=== PATIENT | female | born 1960 | race Caucasian/White ===

== ENCOUNTER 2017-04-23 08:38 | Outpatient (CLI) | payer MEDICARE | END 2017-04-23 23:59 | disposition home or self-care (01) | LOC: VAS 08:38 | PROVIDERS: ATTEND Family Medicine | DX: M71.22 Synovial cyst of popliteal space [Baker], left knee (principal); R60.0 Localized edema | CPT/HCPCS: 93971 ==

== ENCOUNTER 2017-09-27 11:04 | Emergency (ER) | payer MEDICARE ==
[~2017-09-27] VITALS: Ht 167.6 cm; Wt 58.6 kg
[~2017-09-27 11:04] MED LIST: ONDA4TAB12 PO; PANT-47 PO
[2017-09-27 12:11] LABS: INR 2.8 INR; PROTHROMBIN TIME 27.5 SECONDS (9.0-12.0)
[2017-09-27] MEDS ORDERED: ONDA4TAB9 PO (12:17)
[2017-09-27] MEDS ORDERED: ondansetron/PF 4mg/2ml inj IV STA (12:20)
[2017-09-27] MEDS ORDERED: ondansetron 4mg rapidly disintigrating tab PO STA (12:38)
[2017-09-27 12:50] VITALS: BP 143/93
== END 2017-09-27 12:53 | disposition home or self-care (01) ==
LOC: ER 11:04
DX: R11.2 Nausea with vomiting, unspecified (principal); R61 Generalized hyperhidrosis; R10.9 Unspecified abdominal pain; J45.909 Unspecified asthma, uncomplicated; M19.90 Unspecified osteoarthritis, unspecified site; Z90.710 Acquired absence of both cervix and uterus; Z98.890 Other specified postprocedural states; Z88.0 Allergy status to penicillin; Z88.2 Allergy status to sulfonamides; Z79.899 Other long term (current) drug therapy
CPT/HCPCS: 36415; 85610; 99284; J2405

== ENCOUNTER 2017-12-17 10:37 | Outpatient (CLI) | payer MEDICARE ==
[~2017-12-17 10:37] MED LIST changes: +ALBU6.7H INH
== END 2017-12-17 23:59 | disposition home or self-care (01) ==
LOC: VAS 10:37
PROVIDERS: ATTEND Family Medicine
DX: S80.11XA Contusion of right lower leg, initial encounter (principal); M71.21 Synovial cyst of popliteal space [Baker], right knee; R60.0 Localized edema; J45.909 Unspecified asthma, uncomplicated; M06.9 Rheumatoid arthritis, unspecified; Z87.891 Personal history of nicotine dependence; X58.XXXA Exposure to other specified factors, initial encounter; Y93.89 Activity, other specified; Y92.89 Other specified places as the place of occurrence of the external cause; Y99.8 Other external cause status
CPT/HCPCS: 93971

== ENCOUNTER 2018-11-22 15:19 | Emergency (ER) | payer MEDICARE ==
[~2018-11-22] VITALS: Ht 167.6 cm; Wt 68.2 kg
[~2018-11-22 15:19] MED LIST changes: -ALBU6.7H INH; +ARA20T PO; +ATOR20TA66 PO; +DULO60CA65 PO; +ERGO500056 PO; +FLUT200B3 PO; +HYDR200T84 PO; +LOSA1TAB36 PO; +METO25TA6 PO; -ONDA4TAB12 PO; -PANT-47 PO; +PANT40TA4 PO; +POTA8TAB8 PO; +WARF3TAB56 PO
[2018-11-22] MEDS ORDERED: normal saline 1000ML IV soln IV ONE (15:25)
[2018-11-22] MEDS ORDERED: proCHLORperazine 10 MG/2 ml inj IV ONE (15:25)
[2018-11-22] MEDS ORDERED: normal saline 1000ML IV soln IVB ONE ×2 (15:30→18:10)
[2018-11-22 15:53] LABS: EOSINOPHILS # (AUTO) 0.3 X10'3 (0-0.9); LYMPHOCYTES # (AUTO) 0.9 X10'3 (1.1-4.8); LYMPHOCYTES % (AUTO) 16.5 % (21-51); MEAN CORPUSCULAR HEMOGLOBIN 30.4 PG (27.0-31.0); MONOCYTES # (AUTO) 0.7 X10'3 (0-0.9); NEUTROPHILS # (AUTO) 3.5 X10'3 (1.8-7.7); WHITE BLOOD COUNT 5.6 X10'3 (4.5-11.0)
[2018-11-22 15:55] LABS: BASOPHILS # (AUTO) 0.1 X10'3 (0-0.2); BASOPHILS % (AUTO) 2.6 % (0-1); EOSINOPHILS % (AUTO) 4.8 % (0-6); HEMATOCRIT 39.4 % (35.0-45.0); HEMOGLOBIN 13.1 g/dl (12.0-16.0); MEAN CORPUSCULAR HGB CONC 33.4 g/dL (33.0-36.5); MEAN PLATELET VOLUME 10.7 FL (7.4-10.4); MONOCYTES % (AUTO) 13.2 % (2-12); NEUTROPHILS % (AUTO) 62.9 % (42-75); PLATELET COUNT 154 X10'3 (140-440); RED BLOOD COUNT 4.33 X10'6 (4.20-5.60); RED CELL DISTRIBUTION WIDTH 15.8 % (11.5-14.5)
[2018-11-22 16:01] LABS: PARTIAL THROMBOPLASTIN TIME 31 SECONDS (22-32)
[2018-11-22 16:11] LABS: ALANINE AMINOTRANSFERASE 26 U/L (12-78); ALBUMIN/GLOBULIN RATIO 1.4 (1.1-1.5); ALKALINE PHOSPHATASE 56 IU/L (46-116); ANION GAP 16 (8-16); ASPARTATE AMINO TRANSFERASE 33 U/L (10-37); BILIRUBIN,TOTAL 0.6 MG/DL (0.1-1.0); BLOOD UREA NITROGEN 11 MG/DL (7-18); BUN/CREATININE RATIO 7.9 (6.6-38.0); CALCIUM 8.6 MG/DL (8.5-10.1); CHLORIDE 108 MMOL/L (99-107); GLUCOSE 138 MG/DL (70-104); LIPASE 230 U/L (73-393); MAGNESIUM 1.7 MG/DL (1.5-2.4); SODIUM 145 MMOL/L (135-145); TOTAL CARBON DIOXIDE 20.6 MMOL/L (24-32); TOTAL PROTEIN 6.8 G/DL (6.4-8.2); eGFR 39 ML/MIN
--- NOTE | 2018-11-22 16:15 | NUR ---
K 3.0 INFORMED LUDWIG CARLOS AND REJI ALSTON
[2018-11-22] MEDS ORDERED: potassium Cl 20 mEq SR tablet PO ONE (16:25)
[2018-11-22] MEDS ORDERED: haloperidol lactate 5mg/ml inj IM ONE (16:35)
[2018-11-22 17:29] LABS: CLARITY,URINE CLEAR (Clear); COLOR,URINE YELLOW (Yellow); GLUCOSE, URINE NEGATIVE (Neg); KETONES,URINE NEGATIVE (Neg); LEUKOCYTE ESTERASE ,URINE NEGATIVE (Neg); NITRITES, URINE NEGATIVE (Neg); OCCULT BLOOD,URINE SMALL (Neg); PH,URINE 5.5 (4.8-8.0); PROTEIN,URINE 30 mg/dl (Neg); UROBILINOGEN,URINE 0.2 E.U/dL (0.2-1.0)
[2018-11-22 17:35] LABS: UA COLLECTION TYPE CLN CATCH MIDSTREAM
[2018-11-22 17:37] LABS: BACTERIA,URINE FEW /HPF (Neg); MUCUS STRANDS FEW /LPF (Neg); RBC,URINE 0-2 /HPF (0-2); SQUAMOUS EPITHELIAL CELL,UR MODERATE /LPF (FEW); URIC ACID CRYSTALS 1+ /HPF (NEGATIVE); WBC,URINE 0-4 /HPF (0-4)
[2018-11-22] MEDS ORDERED: LORazepam 2 mg/ml vial IM ONE (17:40)
[2018-11-22 17:43] LABS: URINE AMPHETAMINE SCREEN NEGATIVE (Neg); URINE BARBITUATE SCREEN NEGATIVE (Neg); URINE BENZODIAZEPINES SCREEN NEGATIVE (Neg); URINE CANNABINOID SCREEN POSITIVE (Neg); URINE COCAINE SCREEN NEGATIVE (Neg); URINE METHADONE SCREEN NEGATIVE (Neg); URINE OPIATE SCREEN NEGATIVE (Neg); URINE PHENCYCLIDINE SCREEN NEGATIVE (Neg)
--- NOTE | 2018-11-22 19:44 | NUR ---
4th liter ns just finished. 5th one infusing now. HR remains 133, st. family at bedside (son sommer and grandson). dr. roberts back at bedside to see pt. Updated that pt has only vided a small amt (about 100 cc's) when she gave urine sample.
[2018-11-22] MEDS ORDERED: metoprolol tartrate 1mg/ml inj IV ONE ×2 (20:10→20:30)
--- NOTE | 2018-11-22 20:21 | NUR ---
5th liter infused. hr 140, lopressor iv now ordered. family remains at bedside.
--- NOTE | 2018-11-22 20:26 | NUR ---
hr down to 120 from 140 after lopressor [address] roberts ordering another
--- NOTE | 2018-11-22 20:31 | NUR ---
SPOKE TO DR BELTRÁN AND TOLD HIM PATIENTS HR DROPPED TO 121 FROM 141, ORDER RECEIVED FOR MORE LOPRESSOR
--- NOTE | 2018-11-22 20:44 | NUR ---
dr roberts informed of sr and lower bp
--- NOTE | 2018-11-22 21:00 | NUR ---
patient drank 120 ml water, per dr roberts, patient tolerated well; denies nausea
[2018-11-22 21:18] VITALS: BP 141/73
[2019-01-25] MEDS ORDERED: ERGO500014 PO (09:53)
[2019-01-25] MEDS ORDERED: CYAN-51 PO (09:53)
[2019-01-25] MEDS ORDERED: LORA10TA7 PO (09:53)
[2019-01-25] MEDS ORDERED: FOLIC ACID (09:53)
[2019-01-25] MEDS ORDERED: IRON (09:53)
[2019-01-25] MEDS ORDERED: ACET-2319 PO (09:53)
== END 2018-11-22 21:25 | disposition home or self-care (01) ==
LOC: ER 15:19
DX: F12.288 Cannabis dependence with other cannabis-induced disorder (principal); E87.6 Hypokalemia; R74.0 Nonspecific elevation of levels of transaminase and lactic acid dehydrogenase [LDH]; R00.0 Tachycardia, unspecified; R11.2 Nausea with vomiting, unspecified; M06.9 Rheumatoid arthritis, unspecified; J45.909 Unspecified asthma, uncomplicated; Z90.710 Acquired absence of both cervix and uterus; Z98.890 Other specified postprocedural states; Z88.0 Allergy status to penicillin; Z88.2 Allergy status to sulfonamides; Z88.1 Allergy status to other antibiotic agents; Z79.899 Other long term (current) drug therapy
CPT/HCPCS: 36415; 76700; 80053; 80305; 81001; 83605; 83690; 83735; 84145; 85025; 85610; 85730; 87040; 93005; 96361; 96372; 96374; 96375; 99284; J0780; J1630; J2060; J7030; J3490

== ENCOUNTER 2019-01-27 06:12 | Day surgery (SDC) | payer MEDICARE ==
[2019-01-25 10:51] LABS: BASOPHILS # (AUTO) 0.1 X10'3 (0-0.2); EOSINOPHILS # (AUTO) 0.6 X10'3 (0-0.9); LYMPHOCYTES # (AUTO) 1.4 X10'3 (1.1-4.8); MEAN PLATELET VOLUME 10.1 FL (7.4-10.4); MONOCYTES # (AUTO) 0.8 X10'3 (0-0.9); MONOCYTES % (AUTO) 14.7 % (2-12); NEUTROPHILS # (AUTO) 2.7 X10'3 (1.8-7.7); RED BLOOD COUNT 3.99 X10'6 (4.20-5.60)
[2019-01-25 10:53] LABS: BASOPHILS % (AUTO) 1.5 % (0-1); EOSINOPHILS % (AUTO) 11.2 % (0-6); LYMPHOCYTES % (AUTO) 25.1 % (21-51); MEAN CORPUSCULAR HEMOGLOBIN 32.5 PG (27.0-31.0); MEAN CORPUSCULAR HGB CONC 34.2 g/dL (33.0-36.5); NEUTROPHILS % (AUTO) 47.5 % (42-75); PRE OP HEMATOCRIT 37.9 % (35.0-45.0); PRE OP PLATELET COUNT 156 X10'3 (140-440); RED CELL DISTRIBUTION WIDTH 15.2 % (11.5-14.5)
[2019-01-25 11:04] LABS: CLARITY,URINE CLEAR (Clear); COLOR,URINE YELLOW (Yellow); GLUCOSE, URINE NEGATIVE (Neg); KETONES,URINE NEGATIVE (Neg); LEUKOCYTE ESTERASE ,URINE NEGATIVE (Neg); NITRITES, URINE NEGATIVE (Neg); OCCULT BLOOD,URINE NEGATIVE (Neg); PH,URINE 5.5 (4.8-8.0); PROTEIN,URINE NEGATIVE (Neg); UROBILINOGEN,URINE 0.2 E.U/dL (0.2-1.0)
[2019-01-25 11:06] LABS: ALBUMIN 4.3 G/DL (3.4-5.0); ALBUMIN/GLOBULIN RATIO 1.3 (1.1-1.5); ALKALINE PHOSPHATASE 65 IU/L (46-116); BLOOD UREA NITROGEN 10 MG/DL (7-18); BUN/CREATININE RATIO 9.5 (6.6-38.0); CALCIUM 9.3 MG/DL (8.5-10.1); CHLORIDE 103 MMOL/L (99-107); CREATININE 1.05 MG/DL (0.40-0.90); PRE OP ALT 33 U/L (30-65); PRE OP ANION GAP 8 (8-16); PRE OP AST 38 U/L (10-37); PRE OP BILIRUB, TOTAL 0.8 MG/DL (0.0-1.0); PRE OP GLUCOSE 91 MG/DL (70-104); PRE OP POTASSIUM 3.7 MMOL/L (3.4-5.1); PRE OP SODIUM 140 MMOL/L (135-145); TOTAL CARBON DIOXIDE 28.8 MMOL/L (24-32); TOTAL PROTEIN 7.7 G/DL (6.4-8.2); eGFR 54 ML/MIN
[2019-01-25 11:08] LABS: UA COLLECTION TYPE CLN CATCH MIDSTREAM
[2019-01-25 11:26] LABS: PRE OP PROTIME 16.3 SECONDS (9.0-12.0)
[2019-01-25 11:27] LABS: PRE OP INR 1.6 INR
[2019-01-27] VITALS (16 sets, daily range): BP systolic 116–156; BP diastolic 51–100
[~2019-01-27] VITALS: Ht 167.6 cm; Wt 68.8 kg
[~2019-01-27 06:12] MED LIST changes: +ACET-2319 PO; +CYAN-51 PO; +DOCUMENT DATE & TIME OF BETA-BLOCKER PO ONE; +ERGO500014 PO; -ERGO500056 PO; -FLUT200B3 PO; +FOLIC ACID; +GENTAMICIN IV ONE; +IRON; +LORA10TA7 PO; +NORMAL SALINE IV ONE; -PANT40TA4 PO; +cefazolin/dext.iso 2gm/50ml 50 ML IV ONE; +famotidine 20mg tablet PO ONE; +ringers solution, lacted 1,000 ML IV SCH
[2019-01-27 08:31] LABS: PRE OP INR 1.2 INR; PRE OP PROTIME 12.4 SECONDS (9.0-12.0)
[2019-01-27] MEDS ORDERED: ringers solution, lacted 1,000 ML IV SCH (08:31)
[2019-01-27] MEDS ORDERED: proCHLORperazine 10 MG/2 ml inj IV PRN (08:35)
[2019-01-27] MEDS ORDERED: meperidine/PF 25mg/ml syringe IV PRN ×3 (08:35)
[2019-01-27] MEDS ORDERED: ondansetron/PF 4mg/2ml inj IV PRN (08:35)
[2019-01-27] MEDS ORDERED: morphine 4 MG/ML inj SYRINge IV PRN ×2 (08:35)
[2019-01-27] MEDS ORDERED: ondansetron/PF 4mg/2ml inj ONE (11:15)
[2019-01-27] MEDS ORDERED: desflurane 240ml liquid inh. IH ONE (11:15)
[2019-01-27] MEDS ORDERED: dexamethasone sod phosphate 10mg/ml inj ONE (11:15)
[2019-01-27] MEDS ORDERED: BUPIVAcaine/PF 2.5 mg/ml (0.25%) 30ml vial ONE (11:20)
[2019-01-27] MEDS ORDERED: fentaNYL/PF 50MCG/1 ML 2ML syringe ONE (11:20)
[2019-01-27] MEDS ORDERED: midazolam 2 mg/2 ml injection ONE (11:20)
[2019-01-27] MEDS ORDERED: clindamycin phosphate 150mg/ml inj. ONE (11:32)
[2019-01-27] MEDS ORDERED: neostigmine methylsulfate 1 MG/ML 10ml vial ONE (11:49)
[2019-01-27] MEDS ORDERED: glycopyrrolate 0.2mg/ml inj ONE (11:49)
[2019-01-27] MEDS ORDERED: rocuronium 10mg/ml inj IV ONE (11:49)
[2019-01-27] MEDS ORDERED: labetalol 20mg/4ml (5mg/ml) syringe IV ONE (11:50)
[2019-01-27] MEDS ORDERED: propofol inj 20 ML IV ONE (11:50)
[2019-01-27] MEDS ORDERED: LIDOcaine 2% (20mg/ml) 5ml vial ONE (11:50)
[2019-01-27] MEDS ORDERED: acetaminophen 1,000mg/100ml IV 100 ML IV ONE (11:57)
--- NOTE | 2019-01-27 12:05 | NUR ---
ADMITTED TO PACU FROM OR ACCOMPANIED BY ANESTHESIA. INTIAL PHYSICAL ASSESSMENT DONE AND RECORDED. REPORT RECEIVED FROM ANESTHESIA.IN RESPIRATORY DISTRESS ON ARRIVAL AMBU BAG REQUIRED BRIDION IV GIVEN BY ANESTHESIA. FULL REVERSAL ACHIEVED ON MASK TO NASAL CANNULA. RESPONSIVE FOLLOWS SIMPLE COMMANDS.
[2019-01-27] MEDS ORDERED: sugammadex 200mg/2ml injection IV ONE (12:10)
[2019-01-27] MEDS ORDERED: metoprolol tartrate 1mg/ml inj IV PRN (12:45)
[2019-01-27] MEDS ORDERED: metoprolol tartrate 1mg/ml inj IV ONE (12:48)
--- NOTE | 2019-01-27 13:00 | NUR ---
HR REMAINS ~120-125 DR. ARELLANO ADVISED ORDERS RECIEVED TO LOPRESSOR, GIVEN WITH GOOD RESULTS. HR 74
--- NOTE | 2019-01-27 14:15 | NUR ---
DR ARELLANO AT BEDSIDE, STABLE/GOOD CONDITION MAY DISCHARGE PATIENT AT 1500.
[2019-01-27] MEDS ORDERED: HYDROcodone/acetaminophen 5mg/325mg tablet PO ONE (14:25)
--- NOTE | 2019-01-27 15:00 | NUR ---
DISCHARGE CRITERIA MET, DISCHARGE INSTRUCTIONS GIVEN, DEMONSTRATES VERBAL UNDERSTANDING. DISCHARGED HOME IN GOOD CONDITION.
== END 2019-01-27 15:00 | disposition home or self-care (01) ==
LOC: PAS 06:12
PROVIDERS: ATTEND Surgery
DX: K81.1 Chronic cholecystitis (principal); I27.20 Pulmonary hypertension, unspecified; Z87.891 Personal history of nicotine dependence; J44.9 Chronic obstructive pulmonary disease, unspecified; I10 Essential (primary) hypertension; M06.9 Rheumatoid arthritis, unspecified; Z88.2 Allergy status to sulfonamides; Z88.0 Allergy status to penicillin; Z88.1 Allergy status to other antibiotic agents; Z88.8 Allergy status to other drugs, medicaments and biological substances; Z79.01 Long term (current) use of anticoagulants; Z79.899 Other long term (current) drug therapy
CPT/HCPCS: 36415; 47562; 80053; 81003; 82948; 85025; 85610; 85730; C9399; J0131; J1100; J1580; J2001; J2250; J2405; J2704; J2710; J3010; J3490; J7120; A4215; A4618; A7000

== ENCOUNTER 2019-01-27 16:17 | Emergency (ER) | payer MEDICARE ==
[~2019-01-27] VITALS: Ht 167.6 cm; Wt 68.2 kg
[~2019-01-27 16:17] MED LIST changes: -DOCUMENT DATE & TIME OF BETA-BLOCKER PO ONE; -GENTAMICIN IV ONE; -NORMAL SALINE IV ONE; -cefazolin/dext.iso 2gm/50ml 50 ML IV ONE; -famotidine 20mg tablet PO ONE; -ringers solution, lacted 1,000 ML IV SCH
[2019-01-27] MEDS ORDERED: proCHLORperazine 10 MG/2 ml inj IM ONE (16:45)
[2019-01-27 17:50] VITALS: BP 147/79
== END 2019-01-27 17:53 | disposition home or self-care (01) ==
LOC: ER 16:18
DX: T81.89XA Other complications of procedures, not elsewhere classified, initial encounter (principal); J45.909 Unspecified asthma, uncomplicated; M06.9 Rheumatoid arthritis, unspecified; I38 Endocarditis, valve unspecified; Z90.710 Acquired absence of both cervix and uterus; Z88.0 Allergy status to penicillin; Z88.2 Allergy status to sulfonamides; Z79.899 Other long term (current) drug therapy; Z79.01 Long term (current) use of anticoagulants; Y83.8 Other surgical procedures as the cause of abnormal reaction of the patient, or of later complication, without mention of misadventure at the time of the procedure; Y99.8 Other external cause status
CPT/HCPCS: 96372; 99283; J0780

== ENCOUNTER 2019-01-29 01:30 | Emergency (ER) | payer MEDICARE ==
[~2019-01-29] VITALS: Ht 167.6 cm; Wt 68.2 kg
[2019-01-29 01:46] VITALS: BP 154/88
--- NOTE | 2019-01-29 01:58 | NUR ---
Put pt into a room and removed the abd pad, it was completely saturated. Cleaned area. The staple that is to the most left is oozing as is the incision line, about 1 inch total. It is a good ooze. I put a 2 x 2 on it and she is holding pressure. SBAR to Dr. Estes.
--- NOTE | 2019-01-29 02:16 | NUR ---
Dr Estes just dermabonded it.
== END 2019-01-29 02:48 | disposition home or self-care (01) ==
LOC: ER 01:31
DX: T81.89XA Other complications of procedures, not elsewhere classified, initial encounter (principal); K91.841 Postprocedural hemorrhage of a digestive system organ or structure following other procedure; J45.909 Unspecified asthma, uncomplicated; M06.9 Rheumatoid arthritis, unspecified; I38 Endocarditis, valve unspecified; Z90.710 Acquired absence of both cervix and uterus; Z90.49 Acquired absence of other specified parts of digestive tract; Z88.0 Allergy status to penicillin; Z88.2 Allergy status to sulfonamides; Z79.01 Long term (current) use of anticoagulants; Z79.899 Other long term (current) drug therapy; Y83.8 Other surgical procedures as the cause of abnormal reaction of the patient, or of later complication, without mention of misadventure at the time of the procedure; Y92.89 Other specified places as the place of occurrence of the external cause
CPT/HCPCS: 99283

== ENCOUNTER 2019-01-29 08:38 | Emergency (ER) | payer MEDICARE ==
[~2019-01-29] VITALS: Ht 167.6 cm; Wt 68.0 kg
[2019-01-29 09:56] LABS: BASOPHILS # (AUTO) 0.1 X10'3 (0-0.2); BASOPHILS % (AUTO) 0.6 % (0-1); EOSINOPHILS # (AUTO) 0.1 X10'3 (0-0.9); EOSINOPHILS % (AUTO) 1.2 % (0-6); HEMATOCRIT 28.6 % (35.0-45.0); HEMOGLOBIN 9.9 g/dl (12.0-16.0); LYMPHOCYTES # (AUTO) 1.3 X10'3 (1.1-4.8); MEAN CORPUSCULAR HEMOGLOBIN 33.4 PG (27.0-31.0); MEAN CORPUSCULAR HGB CONC 34.6 g/dL (33.0-36.5); MEAN CORPUSCULAR VOLUME 96.4 FL (78-98); MEAN PLATELET VOLUME 9.2 FL (7.4-10.4); MONOCYTES % (AUTO) 9.7 % (2-12); NEUTROPHILS % (AUTO) 76.5 % (42-75); PLATELET COUNT 135 X10'3 (140-440); RED BLOOD COUNT 2.97 X10'6 (4.20-5.60); RED CELL DISTRIBUTION WIDTH 14.2 % (11.5-14.5); WHITE BLOOD COUNT 10.5 X10'3 (4.5-11.0)
[2019-01-29 10:58] VITALS: BP 138/75
== END 2019-01-29 10:59 | disposition home or self-care (01) ==
LOC: ER 08:39
DX: K91.841 Postprocedural hemorrhage of a digestive system organ or structure following other procedure (principal); J45.909 Unspecified asthma, uncomplicated; M06.9 Rheumatoid arthritis, unspecified; Z90.49 Acquired absence of other specified parts of digestive tract; Z90.710 Acquired absence of both cervix and uterus; Z98.890 Other specified postprocedural states; Z88.0 Allergy status to penicillin; Z88.2 Allergy status to sulfonamides; Z79.899 Other long term (current) drug therapy; Z79.01 Long term (current) use of anticoagulants
CPT/HCPCS: 36415; 85025; 99283

== ENCOUNTER 2019-01-29 13:35 | Emergency (ER) | payer MEDICARE ==
[~2019-01-29] VITALS: Ht 157.5 cm; Wt 68.2 kg
[~2019-01-29 13:35] MED LIST changes: +LIDOcaine 1% W/epiNEPHrine 1:100,000 20ml vial ONE
[2019-01-29 15:07] VITALS: BP 136/75
== END 2019-01-29 15:08 | disposition home or self-care (01) ==
LOC: ER 13:35
DX: T81.89XA Other complications of procedures, not elsewhere classified, initial encounter (principal); J45.909 Unspecified asthma, uncomplicated; M06.9 Rheumatoid arthritis, unspecified; G89.29 Other chronic pain; I38 Endocarditis, valve unspecified; Z90.710 Acquired absence of both cervix and uterus; Z90.49 Acquired absence of other specified parts of digestive tract; Z98.890 Other specified postprocedural states; Z88.0 Allergy status to penicillin; Z88.2 Allergy status to sulfonamides; Z79.01 Long term (current) use of anticoagulants; Z79.899 Other long term (current) drug therapy; Y83.8 Other surgical procedures as the cause of abnormal reaction of the patient, or of later complication, without mention of misadventure at the time of the procedure; Y92.89 Other specified places as the place of occurrence of the external cause
CPT/HCPCS: 99283

== ENCOUNTER 2021-05-04 06:49 | Outpatient (CLI) | payer MEDICARE ==
[~2021-05-04 06:49] MED LIST changes: -LIDOcaine 1% W/epiNEPHrine 1:100,000 20ml vial ONE; +LOP25T PO; -METO25TA6 PO
== END 2021-05-04 23:59 | disposition home or self-care (01) ==
LOC: RAD 06:49
PROVIDERS: ATTEND Family Medicine
DX: I25.10 Atherosclerotic heart disease of native coronary artery without angina pectoris (principal); I65.23 Occlusion and stenosis of bilateral carotid arteries; I70.0 Atherosclerosis of aorta; K86.89 Other specified diseases of pancreas; J98.11 Atelectasis; J44.9 Chronic obstructive pulmonary disease, unspecified; I10 Essential (primary) hypertension; E78.5 Hyperlipidemia, unspecified; D89.9 Disorder involving the immune mechanism, unspecified; R06.00 Dyspnea, unspecified; R06.89 Other abnormalities of breathing; M06.9 Rheumatoid arthritis, unspecified; I77.9 Disorder of arteries and arterioles, unspecified; D53.9 Nutritional anemia, unspecified; R21 Rash and other nonspecific skin eruption; I48.91 Unspecified atrial fibrillation; E53.8 Deficiency of other specified B group vitamins; M06.331 Rheumatoid nodule, right wrist; J45.41 Moderate persistent asthma with (acute) exacerbation; R53.83 Other fatigue; R94.5 Abnormal results of liver function studies; K21.9 Gastro-esophageal reflux disease without esophagitis; R94.2 Abnormal results of pulmonary function studies; Z95.2 Presence of prosthetic heart valve; Z90.49 Acquired absence of other specified parts of digestive tract
CPT/HCPCS: 36415; 71046; 71250; 85576; 93880; 94060; 94727; 94729; 94760

== ENCOUNTER 2021-12-11 12:25 | Emergency (ER) | payer MEDICARE ==
[~2021-12-11] VITALS: Ht 165.1 cm; Wt 72.7 kg
[2021-12-11 12:49] LABS: HEMOGLOBIN 14.8 g/dl (12.0-16.0); LYMPHOCYTES # (AUTO) 0.4 X10'3 (1.1-4.8); MONOCYTES # (AUTO) 0.9 X10'3 (0-0.9)
[2021-12-11 12:52] LABS: BASOPHILS # (AUTO) 0.1 X10'3 (0-0.2); BASOPHILS % (AUTO) 2.2 % (0-1); EOSINOPHILS % (AUTO) 0.9 % (0-6); HEMATOCRIT 42.9 % (35.0-45.0); LYMPHOCYTES % (AUTO) 13.5 % (21-51); MEAN CORPUSCULAR HEMOGLOBIN 33.2 PG (27.0-31.0); MEAN CORPUSCULAR HGB CONC 34.6 g/dL (33.0-36.5); MEAN CORPUSCULAR VOLUME 96.1 FL (78-98); MONOCYTES % (AUTO) 29.5 % (2-12); NEUTROPHILS # (AUTO) 1.6 X10'3 (1.8-7.7); NEUTROPHILS % (AUTO) 53.9 % (42-75); PLATELET COUNT 104 X10'3 (140-440); RED BLOOD COUNT 4.46 X10'6 (4.20-5.60); RED CELL DISTRIBUTION WIDTH 13.1 % (11.5-14.5)
[2021-12-11 13:11] LABS: ALANINE AMINOTRANSFERASE 42 U/L (12-78); ALBUMIN 4.4 G/DL (3.4-5.0); ALBUMIN/GLOBULIN RATIO 1.6 (1.1-1.5); ALKALINE PHOSPHATASE 53 IU/L (46-116); ANION GAP 15 (8-16); ASPARTATE AMINO TRANSFERASE 70 U/L (10-37); BILIRUBIN,TOTAL 1.2 MG/DL (0.1-1.0); BLOOD UREA NITROGEN 7 MG/DL (7-18); BUN/CREATININE RATIO 4.2 (6.6-38.0); CALCIUM 9.1 MG/DL (8.5-10.1); CHLORIDE 102 MMOL/L (99-107); CREATININE 1.66 MG/DL (0.40-0.90); GLUCOSE 119 MG/DL (70-104); LIPASE 136 U/L (73-393); SODIUM 141 MMOL/L (135-145); TOTAL CARBON DIOXIDE 24.3 MMOL/L (24-32); TOTAL PROTEIN 7.1 G/DL (6.4-8.2); eGFR 32 ML/MIN
[2021-12-11 13:21] LABS: POTASSIUM 2.7 MMOL/L (3.5-5.1)
[2021-12-11 14:06] LABS: PLATELET ESTIMATE NORMAL; SMUDGE CELLS 1+; TOTAL CELLS COUNTED 100
[2021-12-11] MEDS ORDERED: potassium Cl 10 mEq/100mL bag IV ONE (14:20)
[2021-12-11] MEDS ORDERED: normal saline 1000ml 1,000 ML IV ONE (14:20)
[2021-12-11] MEDS ORDERED: ondansetron/PF 4mg/2ml inj IV ONE (14:20)
[2021-12-11] MEDS ORDERED: POTASSIUM BICARB 20meq eff tab 20 MEQ TABLET.EFF PO ONE (14:20)
[2021-12-11] MEDS ORDERED: proCHLORperazine 10 MG/2 ml inj IV ONE (14:30)
[2021-12-11] MEDS ORDERED: BEBTELOVIMAB 175 MG/2 ML VIAL IV ONE (15:40)
[2021-12-11] MEDS ORDERED: acetaminophen 325mg tablet PO ONE (15:40)
[2021-12-11] MEDS ORDERED: ONDA8TAB13 PO (15:45)
[2021-12-11 16:19] VITALS: BP 111/73
== END 2021-12-11 17:18 | disposition home or self-care (01) ==
LOC: ER 12:25
DX: U07.1 COVID-19 (principal); I11.9 Hypertensive heart disease without heart failure; M54.9 Dorsalgia, unspecified; G89.29 Other chronic pain; Z88.5 Allergy status to narcotic agent; Z88.2 Allergy status to sulfonamides
CPT/HCPCS: 36415; 80053; 83690; 85007; 85025; 87635; 96361; 96374; 96375; 99284; C9803; J0780; J3480; J7030; M0222; Q0222

== ENCOUNTER 2022-07-24 18:48 | Emergency (ER) | payer MEDICARE ==
[~2022-07-24] VITALS: Ht 165.1 cm; Wt 70.0 kg
[~2022-07-24 18:48] MED LIST changes: +ONDA8TAB13 PO
[2022-07-24] MEDS ORDERED: bacitracin 15gm ointment TP ONE (20:50)
[2022-07-24 20:55] VITALS: BP 112/78
[2022-07-24] MEDS ORDERED: TETanus/Pertussis (Acell)/Diphther VAC/PF (Tdap-Adult) 0.5ml syringe IMVAC ONE (22:00)
== END 2022-07-24 22:08 | disposition home or self-care (01) ==
LOC: ER 18:48
DX: S60.411A Abrasion of left index finger, initial encounter (principal); I51.9 Heart disease, unspecified; G89.29 Other chronic pain; M54.9 Dorsalgia, unspecified; J45.909 Unspecified asthma, uncomplicated; Z90.49 Acquired absence of other specified parts of digestive tract; Z98.890 Other specified postprocedural states; Z88.5 Allergy status to narcotic agent; Z79.899 Other long term (current) drug therapy; Z88.8 Allergy status to other drugs, medicaments and biological substances; X58.XXXA Exposure to other specified factors, initial encounter; Y93.89 Activity, other specified; Y92.89 Other specified places as the place of occurrence of the external cause; Y99.8 Other external cause status
CPT/HCPCS: 90471; 90715; 99283

== ENCOUNTER 2024-10-23 09:08 | Emergency (ER) | payer MEDICARE ==
[~2024-10-23] VITALS: Ht 167.6 cm; Wt 69.3 kg
[~2024-10-23 09:08] MED LIST changes: +CYAN-104 PO; -CYAN-51 PO; +HYDR200T73 PO; -HYDR200T84 PO; +ONDA-245 PO; -ONDA8TAB13 PO
[2024-10-23] MEDS: TETanus/Pertussis (Acell)/Diphther VAC/PF (Tdap-Adult) 0.5ml syringe IMVAC ONE (09:54)
--- NOTE | 2024-10-23 09:55 | Physician Documentation ---
History of Present Illness ~ Chief Complaint: Blood in Urine Stated Complaint: BLOOD IN URINE Time Seen by MD: 09:32 OK to notify your PCP?: Yes Primary Medical Doctor: None Source: patient Mode of Arrival: POV Exam Limitations: no limitations HPI 64-year-old female with chief complaint right knee pain since ground level fall in the 15 of October a week ago. She also reports some mild ankle pain but states her knee pain is quite a bit worse than her ankle. Pain is worse with weight- bearing or if she touches her right knee where she has swelling. She reports an abrasion in this area. No pre arrival treatment. Patient also states that yesterday after she had a bowel movement there was blood on the toilet paper no blood in the toilet bowl and stool was brown. She states she did not think too much of it however today when she woke up and urinated she noticed blood in the toilet bowl as well as on her panty liner. She denies any abdominal pain, pain with urination, urinary frequency, rectal pain, vaginal pain. Patient brings this up today because she is not sure if when she fell a week ago she could have injured something that is causing her to now bleed. She denies any trauma to her abdomen. Medication Reconciliation Allergies: Coded Allergies: Penicillins (Verified Allergy, Unknown, has received cefazolin during a past visit w/no issue., 07/24/22) Sulfa (Sulfonamide Antibiotics) (Verified Allergy, Unknown, 07/24/22) sulfamethoxazole (Unverified Allergy, Unknown, 07/24/22) trimethoprim (Unverified Allergy, Unknown, 07/24/22) Scheduled Acetaminophen/Dp-Hydram Hcl (Tylenol Pm), 1 TAB PO HS, (Reported) Atorvastatin Calcium (Atorvastatin Calcium), 20 MG PO DAILY, (Reported) Cyanocobalamin (Vitamin B-12), Unknown Dose PO DAILY, (Reported) Duloxetine HCl (Duloxetine HCl), 60 MG PO HS, (Reported) Ergocalciferol* (Vitamin D*), 1 CAP PO Q14D, (Reported) Hydroxychloroquine Sulfate* (Plaquenil*), 200 MG PO DAILY, (Reported) Leflunomide (Leflunomide), 20 MG PO DAILY, (Reported) Loratadine (Loratadine), 10 MG PO DAILY, (Reported) Losartan/Hydrochlorothiazide (Losartan-Hctz 50-12.5 Mg Tab), 1 TAB PO DAILY, (Reported) Metoprolol Tartrate* (Lopressor tablet*), 25 MG PO BID, (Reported) Ondansetron 8mg ODT (Ondansetron Odt), 1 TAB PO Q6H Potassium Chloride (Potassium Chloride), 16 MEQ PO BID, (Reported) Warfarin Sodium (Warfarin Sodium), 1 TAB PO DAILY, (Reported) [Folic Acid], Unknown Dose DAILY, (Reported) [Iron], Unknown Dose DAILY, (Reported) Past Medical History Past Medical History: Heart Valve Disease, Asthma, Chronic Back Pain, Rheumatoid Arthritis Past Surgical History: cholecystectomy, heart valve surgery, hysterectomy, other Other Past Surgical History: facial reconstruction Alcohol Use: Heavy Drug Use: none Lives with: Spouse Lives In: Home Review of Systems All Other Systems at this time: Reviewed and Negative Physical Exam Vital Signs: Temperature: 97.5, Source: Temporal, Heart Rate: 116, Respiratory Rate: 20, BP: 183/99, Pulse Oximetry: 99, Weight: 69.300 Oxygen Flow Rate: 0 Physical Exam GENERAL: Alert, no acute distress. HEENT: NCAT, EOMI, PERRL, normal oropharynx, moist oral mucosa. NECK: Supple, trachea midline. CARDIAC: Regular rate and rhythm, no murmurs, rubs, or gallops. PV: Equal distal pulses. No lower extremity edema, cap refill less than 2 seconds. RESPIRATORY: Equal breath sounds, clear to auscultation bilaterally, no respiratory distress. GASTROINTESTINAL: Non distended, soft, nontender, No guarding or rebound. MUSCULOSKELETAL: RIGHT KNEE: PROTUBERANT WELL DEFINED AREA OF SWELLING OVER THE PROXIMAL TIBIA WITH ERYTHEMA AND TTP, SKIN IS TENSE AND TTP IN THIS AREA. NO ERYTHEMA OF KNEE JOINT, NO KNEE EFFUSION, NTTP OVER JOINT SPACES OF KNEE. RIGHT ANKLE: DIFFUSE ECCHYMOSIS, MILD TTP OVER MEDIAL AND LATERAL MALLEOLUS. NEUROLOGICAL: Awake, alert, and oriented x 3. SKIN: Warm/dry, no pallor, no rash. PSYCH: Alert and appropriate. Affect congruent with mood. Speech is clear. Good eye contact. Procedures Procedures RIGHT ANTERIOR KNEE WAS CLEANED WITH BETADINE BETADINE WAS ALLOWED TO DRY I USED A 27 GAUGE NEEDLE TO INJECT LIDOCAINE WITH EPI INTO THE PROTUBERANT AREA OF S WELLING. 11BLADE SCALPEL USED TO MAKE INCISION INTO CENTER OF AREA OF INDURATION. BLOOD IMMEDIATELY SPRAYED OUT OF THE INCISION THAT I MADE, NO PURULENT FLUID EXPRESSED, PROTUBERANT AREA IMMEDIATELY RESOLVED. PATIENT TOLERATE WELL Progress Results/Orders Results/Orders Orders - LUDWIG ASTORGA Ankle, Complete(3vw Min) (10/23/24 09:37) Knee Limited (Ap/Lat) (10/23/24 09:37) Cult (Aer) Routine C&S+Gram St (10/23/24 09:37) Laceration/I&D Tray Set Up (10/23/24 09:37) Completed Orders - LUDWIG ASTORGA Ankle, Complete(3vw Min) (10/23/24 09:37) Knee Limited (Ap/Lat) (10/23/24 09:37) Tetanus/Pertuss/Diph Acell/Pf (Boostrix (10/23/24 09:40) Lidocaine 1% W/Epi 1:100,000 (Xylocaine (10/23/24 09:40) Medications Received in ER Medications (Trade) Dose Ordered Sig/Xiomara Route PRN Reason Start Time Stop Time Status Last Admin Dose Admin (Boostrix vaccine syringe) 0.5 ml ONCE ONCE IMVAC 10/23/24 09:40 10/23/24 09:41 DC 10/23/24 09:54 0.5 ML Vital Signs 10/23/24 09:13 Temp 97.5 Pulse 116 Resp 20 B/P (MAP) 183/99 Pulse Ox 99 O2 Flow Rate 0 Laboratory Tests Test 10/23/24 09:50 Urine Specimen Description Cln catch midstream Urine Color Red Urine Clarity Cloudy Urine pH Urine Specific [place] Urine Protein Urine Glucose (UA) Urine Ketones Urine Occult Blood Urine Nitrite Urine Bilirubin Urine Urobilinogen Urine Leukocyte Esterase Urine RBC Tntc Urine WBC 5-10 H Urine Squamous Epithelial Cells Moderate Urine Amorphous Phosphates 1+ Urine Bacteria None seen Urine Mucus None seen Volume Urine Centrifuged 10 ml Urine Comment See note Medical Decision Making Genital Diff Dx:Considerations: Include: -Complete, - Incomplete, -Inevitable, Ablortion-Missed, -Threatened, Abruptio placentae, Bartholin abscess, Bartholin cyst, Blood loss anemia, Constipation, Cervicitis, Dsymenorrhea, Ectopic , Foreign body, Hormonal, Hidradenitis suppurativa, Intrauterine , Menorrhagia, Menometrorrhagia, Menstrual bleeding, Myomatous uterus, Perianal abscess, Physiologic discharge, Pinworms, PID, Placenta previa, , Precipitous Hct, Trauma, UTI, Vaginitis(osis)-Atrophic, Vaginitis, Vaginitis(osis)-Bacterial, Vaginitis(osis)- Candidal, Vaginitis(osis)-Contact, Vaginitis(osis)-Herpes, Vaginitis(osis)- Trich. Departure Time of Disposition: 10:40 Disposition: 01 HOME / SELF CARE / HOMELESS Impression: Primary Impression: Hematoma of right knee region Additional Impressions: Right ankle sprain Qualified Codes: S93.401A - Sprain of unspecified ligament of right ankle, initial encounter Vaginal bleeding, abnormal Condition: Stable Discharge Instructions: Hematoma, [id number] Additional Instructions: YOUR URINE DID NOT SHOW INFECTION YOU REPORT VAGINAL BLEEDING INTERMITTENT, THIS NEEDS TO BE WORKED UP BY YOUR PCP IF BLEEDING BECOMES CONSTANT, RETURN TO ER, OTHERWISE THIS IS OUTPATIENT WORKUP WE DRAINED THE HEMATOMA ON YOUR KNEE KEEP COMPRESSION ON THE AREA FOR THE NEXT FEW DAYS IF ANY SIGNS OR SYMPTOMS OF INFECTION, INCREASING PAIN, SWELLING, FEVER, RETURN TO ER Referrals: NO PRIMARY CARE PROVIDER (PCP) Education Educated: Patient Educated regarding: diagnosis, treatment, need for follow up Signature Scribe Signature: X Attestation: LUDWIG LINDO Oct 23, 2024 09:55
[2024-10-23 10:04] LABS: UA COLLECTION TYPE CLN CATCH MIDSTREAM
[2024-10-23 10:07] LABS: AMORPHOUS PHOSPHATES 1+; MUCUS STRANDS NONE SEEN /LPF (Neg); SQUAMOUS EPITHELIAL CELL,UR MODERATE /LPF (FEW)
[2024-10-23] MEDS: LIDOcaine 1% W/epiNEPHrine 1:100,000 20ml vial IJ ONE (10:46)
--- NOTE | 2024-10-23 10:46 | RADIOLOGY REPORT ---
Indication: right knee and ankle pain s/p GLF a week ago Technique: DI ANKLE, COMPLETE(3VW MIN)ANKLECPLT Comparison: None FINDINGS/IMPRESSION: No radiographic evidence for acute fracture or dislocation. Achilles enthesopathy. Pes planus. Mild soft tissue edema surrounding the lateral malleolar region. Mild degenerative changes midfoot.
[2024-10-23 10:48] VITALS: BP 170/91; PULSE 76; RESP 16; TEMP 97.9; O2SAT 98
--- NOTE | 2024-10-25 09:08 | RADIOLOGY REPORT ---
CLINICAL INDICATION: right knee and ankle pain s/p GLF a week ago TECHNIQUE: DI KNEE LIMITED (AP/LAT) Comparison: None FINDINGS/IMPRESSION: : There is no evidence of acute fracture or dislocation. Severe lateral and patellofemoral degenerative joint space narrowing.
== END 2024-10-23 10:55 | disposition home or self-care (01) ==
LOC: ER 09:09
DX: S93.401A Sprain of unspecified ligament of right ankle, initial encounter (principal); S80.01XA Contusion of right knee, initial encounter; J45.909 Unspecified asthma, uncomplicated; M06.9 Rheumatoid arthritis, unspecified; Z88.0 Allergy status to penicillin; Z88.1 Allergy status to other antibiotic agents; Z88.2 Allergy status to sulfonamides; Z88.8 Allergy status to other drugs, medicaments and biological substances; Z90.49 Acquired absence of other specified parts of digestive tract; Z90.710 Acquired absence of both cervix and uterus; X58.XXXA Exposure to other specified factors, initial encounter; Y93.89 Activity, other specified; Y92.89 Other specified places as the place of occurrence of the external cause; Y99.8 Other external cause status
CPT/HCPCS: 10140; 73560; 73610; 81001; 90715; 99284; A6402; A6449; G0008; J3490; Z7610; 90471